=== PATIENT | female | born 1995 | race Hispanic/Latino ===

== ENCOUNTER 2018-01-20 23:37 | Emergency (ER) | payer OTHER ==
[2018-01-21 00:22] LABS: APPEARANCE,URINE Cloudy (CLEAR); BILIRUBIN,URINE Negative (NEGATIVE); COLOR,URINE Yellow (YELLOW); GLUCOSE, URINE (UA) Negative (NEGATIVE); KETONES,URINE Trace mg/dL (NEGATIVE); LEUKOCYTE ESTERASE ,URINE Moderate (NEGATIVE); NITRATE,URINE Negative (NEGATIVE); OCCULT BLOOD,URINE Negative (NEGATIVE); PH,URINE 5.5 (5.0-8.0); PROTEIN,URINE Negative (NEGATIVE)
[2018-01-21 00:27] LABS: HCG,QUAL RESULT NEGATIVE (NEGATIVE)
[2018-01-21 00:45] LABS: BACTERIA,URINE Few /HPF (None Seen); MUCUS,URINE Many LPF (None Seen); RBC,URINE None Seen /HPF (0-1); SQUAMOUS EPITHELIAL CELL,UR Moderate /HPF (0-2)
== END 2018-01-21 00:55 | disposition home or self-care (01) ==
LOC: EDH 23:37
DX: N39.0 Urinary tract infection, site not specified (principal); R05 Cough
CPT/HCPCS: 81001; 81025; 87088

== ENCOUNTER 2018-03-14 17:45 | Emergency (ER) | payer OTHER ==
[2018-03-14] MEDS ORDERED: ACETAMINOPHEN 325 MG TAB ONE (19:23)
[2018-03-14] MEDS ORDERED: ONDANSETRON ODT 4 MG TAB ONE (19:23)
[2018-03-14 19:39] LABS: BASOPHILS % (AUTO) 0.5 % (0.0-5.0); EOSINOPHILS % (AUTO) 1.1 % (0.0-8.0); HEMATOCRIT 40.2 % (36-48); MEAN CORPUSCULAR HEMOGLOBIN 28.3 pg (27.0-33.0); MEAN CORPUSCULAR HGB CONC 33.6 g/dL (32.0-36.0); MEAN CORPUSCULAR VOLUME 84.1 fL (79-99); MONOCYTES % (AUTO) 6.5 % (3.0-13.0); NEUTROPHILS % (AUTO) 70.9 % (40.0-77.0); NUCLEATED RED BLOOD CELLS 0.1 % (0.0-0.19); PLATELET COUNT (AUTO) 342 K/uL (130-400); RED BLOOD CELL COUNT(AUTO) 4.78 MIL/uL (4.00-5.50); RED CELL DISTRIBUTION WIDTH 13.1 % (11.0-15.5); WHITE BLOOD COUNT (AUTO) 13.6 K/uL (4.8-10.8)
[2018-03-14 19:40] LABS: APPEARANCE,URINE Clear (CLEAR); BILIRUBIN,URINE Negative (NEGATIVE); COLOR,URINE Yellow (YELLOW); GLUCOSE, URINE (UA) Negative (NEGATIVE); KETONES,URINE 40 mg/dL (NEGATIVE); LEUKOCYTE ESTERASE ,URINE Moderate (NEGATIVE); NITRATE,URINE Negative (NEGATIVE); OCCULT BLOOD,URINE Small (NEGATIVE); PH,URINE 6.5 (5.0-8.0); PROTEIN,URINE Negative (NEGATIVE)
[2018-03-14 19:47] LABS: HCG,QUAL RESULT POSITIVE (NEGATIVE)
[2018-03-14 19:58] LABS: BACTERIA,URINE Few /HPF (None Seen); MUCUS,URINE Few LPF (None Seen); SQUAMOUS EPITHELIAL CELL,UR Few /HPF (0-2)
[2018-03-14 20:10] LABS: CREATININE 0.7 mg/dL (0.5-1.5); POTASSIUM 3.9 mmol/L (3.5-5.1)
[2018-03-14 20:15] LABS: ALBUMIN 3.9 g/dL (3.5-5.0); BILIRUBIN,TOTAL 0.5 mg/dL (0.2-1.0)
== END 2018-03-14 22:33 | disposition home or self-care (01) ==
LOC: EDH 17:45
DX: O20.0 Threatened abortion (principal); O23.41 Unspecified infection of urinary tract in pregnancy, first trimester; Z3A.01 Less than 8 weeks gestation of pregnancy
CPT/HCPCS: 36415; 76817; 80053; 81001; 81025; 83690; 84702; 85025

== ENCOUNTER 2018-04-09 19:05 | Emergency (ER) | payer MEDICAID, OTHER ==
[2018-04-09] MEDS ORDERED: ACETAMINOPHEN 325 MG TAB ONE (19:49)
[2018-04-09 21:01] LABS: APPEARANCE,URINE Cloudy (CLEAR); BILIRUBIN,URINE Negative (NEGATIVE); COLOR,URINE Yellow (YELLOW); GLUCOSE, URINE (UA) TRACE mg/dL (NEGATIVE); KETONES,URINE Negative (NEGATIVE); LEUKOCYTE ESTERASE ,URINE Large (NEGATIVE); NITRATE,URINE Negative (NEGATIVE); OCCULT BLOOD,URINE Negative (NEGATIVE); PROTEIN,URINE Negative (NEGATIVE); UROBILINOGEN,URINE 0.2 mg/dL (0.2-1.0)
[2018-04-09] MEDS ORDERED: LIDOCAINE HCL-MPF 1% 2ML VIAL ONE (21:12)
[2018-04-09 21:13] LABS: RBC,URINE 0-1 /HPF (0-1); SQUAMOUS EPITHELIAL CELL,UR Few /HPF (0-2)
[2018-04-09] MEDS ORDERED: CEFTRIAXONE SODIUM 1 GM ONE (21:13)
[2018-04-09] MEDS ORDERED: ACETAMINOPHEN EXTRA STRENGTH 500 MG TABLET ONE (21:13)
[2018-04-09 21:14] LABS: MUCUS,URINE Few LPF (None Seen)
[2018-04-09 21:15] LABS: BACTERIA,URINE Moderate /HPF (None Seen)
== END 2018-04-09 22:04 | disposition home or self-care (01) ==
LOC: EDH 19:05
DX: O23.41 Unspecified infection of urinary tract in pregnancy, first trimester (principal); Z3A.10 10 weeks gestation of pregnancy; Z90.89 Acquired absence of other organs
CPT/HCPCS: 81001; 96372; 99283; J0696; J3490

== ENCOUNTER 2018-05-12 19:22 | Emergency (ER) | payer MEDICAID ==
[2018-05-12 20:45] LABS: BASOPHILS % (AUTO) 1.2 % (0.0-5.0); EOSINOPHILS % (AUTO) 1.8 % (0.0-8.0); HEMATOCRIT 38.7 % (36-48); MEAN CORPUSCULAR HEMOGLOBIN 28.5 pg (27.0-33.0); MEAN CORPUSCULAR HGB CONC 33.7 g/dL (32.0-36.0); MEAN CORPUSCULAR VOLUME 84.7 fL (79-99); MONOCYTES % (AUTO) 6.7 % (3.0-13.0); NEUTROPHILS % (AUTO) 65.3 % (40.0-77.0); PLATELET COUNT (AUTO) 301 K/uL (130-400); RED BLOOD CELL COUNT(AUTO) 4.56 MIL/uL (4.00-5.50); RED CELL DISTRIBUTION WIDTH 13.4 % (11.0-15.5); WHITE BLOOD COUNT (AUTO) 11.7 K/uL (4.8-10.8)
[2018-05-12 20:56] LABS: CREATININE 0.7 mg/dL (0.5-1.5); POTASSIUM 3.9 mmol/L (3.5-5.1)
[2018-05-12 21:14] LABS: BILIRUBIN,URINE Negative (NEGATIVE); COLOR,URINE Yellow (YELLOW); GLUCOSE, URINE (UA) Negative (NEGATIVE); KETONES,URINE Trace mg/dL (NEGATIVE); LEUKOCYTE ESTERASE ,URINE Moderate (NEGATIVE); NITRATE,URINE Negative (NEGATIVE); OCCULT BLOOD,URINE Negative (NEGATIVE); PH,URINE 6.5 (5.0-8.0); PROTEIN,URINE Negative (NEGATIVE)
[2018-05-12 21:16] LABS: APPEARANCE,URINE SLIGHTLY CLOUDY (CLEAR)
[2018-05-12 21:29] LABS: RBC,URINE 0-1 /HPF (0-1)
[2018-05-12 21:30] LABS: BACTERIA,URINE Few /HPF (None Seen); SQUAMOUS EPITHELIAL CELL,UR Moderate /HPF (0-2)
== END 2018-05-12 22:01 | disposition home or self-care (01) ==
LOC: EDH 19:22
DX: O20.0 Threatened abortion (principal); O23.42 Unspecified infection of urinary tract in pregnancy, second trimester; Z3A.15 15 weeks gestation of pregnancy; Z90.89 Acquired absence of other organs
CPT/HCPCS: 36415; 80048; 81001; 84702; 85025; 86900; 86901

== ENCOUNTER 2018-07-18 14:26 | Observation (INO) | payer MEDICAID ==
[~2018-07-18] VITALS: Ht 157.5 cm; Wt 76.7 kg
[2018-07-18 15:11] LABS: APPEARANCE,URINE Clear (CLEAR); BILIRUBIN,URINE Negative (NEGATIVE); COLOR,URINE Yellow (YELLOW); GLUCOSE, URINE (UA) Negative (NEGATIVE); KETONES,URINE Negative (NEGATIVE); LEUKOCYTE ESTERASE ,URINE Moderate (NEGATIVE); NITRATE,URINE Negative (NEGATIVE); OCCULT BLOOD,URINE Negative (NEGATIVE); PROTEIN,URINE Negative (NEGATIVE)
[2018-07-18 15:30] LABS: BACTERIA,URINE Moderate /HPF (None Seen); RBC,URINE 0-1 /HPF (0-1); SQUAMOUS EPITHELIAL CELL,UR Moderate /HPF (0-2)
[2018-07-18 15:31] LABS: MUCUS,URINE Rare LPF (None Seen)
[2018-07-18] MEDS ORDERED: CEFTRIAXONE SODIUM 1 GM ONE (16:19)
== END 2018-07-18 17:30 | disposition home or self-care (01) ==
LOC: EDH 14:26 → LDH 14:27
PROVIDERS: ADMIT Specialist; ATTEND Specialist
DX: O26.892 Other specified pregnancy related conditions, second trimester (principal); R10.30 Lower abdominal pain, unspecified; Z3A.24 24 weeks gestation of pregnancy
CPT/HCPCS: 81001; 99284; G0378 ×3; J0696; 96360

== ENCOUNTER 2018-08-21 10:55 | Observation (INO) | payer MEDICAID | END 2018-08-21 12:05 | disposition home or self-care (01) | LOC: EDH 10:55 → LDH 10:56 | PROVIDERS: ADMIT Obstetrics & Gynecology; ATTEND Obstetrics & Gynecology | DX: O46.93 Antepartum hemorrhage, unspecified, third trimester (principal); Z3A.29 29 weeks gestation of pregnancy | CPT/HCPCS: 99284; G0378 ==

== ENCOUNTER 2018-10-07 10:59 | Inpatient (IN) | payer MEDICAID | END 2018-10-09 16:35 | disposition home or self-care (01) | LOC: EDH 10:59 → LDH 11:00 → WSH 21:35 | PROC: 0UQG7ZZ Repair Vagina, Via Natural or Artificial Opening (ICD-10-PCS; principal; ~2018-10-07) | PROC: 10E0XZZ Delivery of Products of Conception, External Approach (ICD-10-PCS; ~2018-10-07) | DX: O60.14X0 Preterm labor third trimester with preterm delivery third trimester, not applicable or unspecified (principal); Z37.0 Single live birth; Z3A.49 Greater than 42 weeks gestation of pregnancy ==

== ENCOUNTER 2018-11-29 00:47 | Emergency (ER) | payer MEDICAID ==
[~2018-11-29 00:47] MED LIST: PREN-154 PO
== END 2018-11-29 02:16 | disposition home or self-care (01) ==
LOC: EDH 00:47
DX: J06.9 Acute upper respiratory infection, unspecified (principal); Z90.89 Acquired absence of other organs

== ENCOUNTER 2019-01-16 17:35 | Emergency (ER) | payer MEDICAID, OTHER ==
[2019-01-16 19:00] LABS: APPEARANCE,URINE Clear (CLEAR); BILIRUBIN,URINE Negative (NEGATIVE); COLOR,URINE Yellow (YELLOW); GLUCOSE, URINE (UA) Negative (NEGATIVE); KETONES,URINE Negative (NEGATIVE); LEUKOCYTE ESTERASE ,URINE Negative (NEGATIVE); NITRATE,URINE Negative (NEGATIVE); OCCULT BLOOD,URINE Negative (NEGATIVE); PH,URINE 6.5 (5.0-8.0); PROTEIN,URINE Negative (NEGATIVE)
[2019-01-16 19:03] LABS: HCG,QUAL RESULT POSITIVE (NEGATIVE)
== END 2019-01-16 20:20 | disposition home or self-care (01) ==
LOC: EDH 17:35
DX: O20.0 Threatened abortion (principal); Z3A.01 Less than 8 weeks gestation of pregnancy; Z98.890 Other specified postprocedural states
CPT/HCPCS: 36415; 81003; 81025; 84702

== ENCOUNTER 2019-03-26 10:42 | Emergency (ER) | payer MEDICAID | END 2019-03-26 12:53 | disposition home or self-care (01) | LOC: EDH 10:42 | DX: O26.891 Other specified pregnancy related conditions, first trimester (principal); Z3A.12 12 weeks gestation of pregnancy; J20.9 Acute bronchitis, unspecified; J10.1 Influenza due to other identified influenza virus with other respiratory manifestations | CPT/HCPCS: 87804 ==

== ENCOUNTER 2019-04-23 19:44 | Emergency (ER) | payer MEDICAID ==
[2019-04-23] MEDS ORDERED: ACETAMINOPHEN 325 MG TAB ONE (20:18)
[2019-04-23 20:22] LABS: APPEARANCE,URINE Clear (CLEAR); BILIRUBIN,URINE Negative (NEGATIVE); COLOR,URINE Yellow (YELLOW); GLUCOSE, URINE (UA) Negative (NEGATIVE); KETONES,URINE Negative (NEGATIVE); LEUKOCYTE ESTERASE ,URINE Moderate (NEGATIVE); NITRATE,URINE Negative (NEGATIVE); OCCULT BLOOD,URINE Negative (NEGATIVE); PH,URINE 6.5 (5.0-8.0); PROTEIN,URINE Negative (NEGATIVE)
[2019-04-23 21:42] LABS: BACTERIA,URINE Few /HPF (None Seen); RBC,URINE 0-1 /HPF (0-1)
[2019-04-23 21:43] LABS: SQUAMOUS EPITHELIAL CELL,UR Few /HPF (0-2)
== END 2019-04-23 21:29 | disposition home or self-care (01) ==
LOC: EDH 19:44
DX: O23.42 Unspecified infection of urinary tract in pregnancy, second trimester (principal); Z3A.18 18 weeks gestation of pregnancy; Z90.49 Acquired absence of other specified parts of digestive tract
CPT/HCPCS: 81001

== ENCOUNTER 2019-08-27 01:52 | Observation (INO) | payer MEDICAID ==
[~2019-08-27] VITALS: Ht 157.5 cm; Wt 80.7 kg
[2019-08-27 02:49] VITALS: BP 116/69
[2019-08-27] MEDS ORDERED: LACTATED RINGERS 1000ML 1,000 ML IV PRN (03:16)
[2019-08-27] MEDS ORDERED: AMPICILLIN 2GM+NS 100ML 100 ML IV ONE (03:22)
[2019-08-27] MEDS ORDERED: LACTATED RINGERS 1000ML 1,000 ML IV ONE (03:24)
[2019-08-27] MEDS ORDERED: AMPICILLIN 2GM+NS 100ML 100 ML IV SCH (03:30)
[2019-08-27] MEDS ORDERED: MEPERIDINE-PF 50 MG/ML SYG IVP PRN (03:30)
[2019-08-27] MEDS ORDERED: PROMETHAZINE HCL 25 MG/ML 1ML AMPULE IM PRN (03:30)
[2019-08-27] MEDS ORDERED: AMPICILLIN 1GM+NS 50ML 50 ML IV SCH (07:30)
== END 2019-08-27 08:33 | disposition home or self-care (01) ==
LOC: EDH 01:52 → INTOOBSV 01:53 → OBSVTOIN 01:53 → LDH 01:53
DX: O62.9 Abnormality of forces of labor, unspecified (principal); Z3A.36 36 weeks gestation of pregnancy
CPT/HCPCS: 36415; 80305; 81001; 85027; 86592; 86701; 86850; 86900; 86901; 87088; 87340; 87390; 96365; 99284; G0378 ×6; J0290 ×2; J7120

== ENCOUNTER 2020-04-06 13:18 | Emergency (ER) | payer MEDICAID ==
[~2020-04-06 13:18] MED LIST changes: +FERR-82 PO
[2020-04-06] MEDS ORDERED: ACETAMINOPHEN WITH CODEINE 1 TAB TAB ONE (13:46)
== END 2020-04-06 15:29 | disposition left against medical advice (07) ==
LOC: EDH 13:18
DX: O9A.212 Injury, poisoning and certain other consequences of external causes complicating pregnancy, second trimester (principal); S09.93XA Unspecified injury of face, initial encounter; Z90.49 Acquired absence of other specified parts of digestive tract; Z3A.27 27 weeks gestation of pregnancy; Y08.89XA Assault by other specified means, initial encounter; Y93.89 Activity, other specified; Y92.89 Other specified places as the place of occurrence of the external cause; Y99.8 Other external cause status
CPT/HCPCS: 76805

== ENCOUNTER 2020-06-14 16:40 | Inpatient (IN) | payer MEDICAID ==
[~2020-06-14] VITALS: Ht 157.5 cm; Wt 80.7 kg
[2020-06-14 17:21] LABS: APPEARANCE,URINE Clear (CLEAR); BILIRUBIN,URINE Negative (NEGATIVE); COLOR,URINE Yellow (YELLOW); GLUCOSE, URINE (UA) Negative (NEGATIVE); KETONES,URINE >=80 mg/dL (NEGATIVE); LEUKOCYTE ESTERASE ,URINE Trace (NEGATIVE); NITRATE,URINE Negative (NEGATIVE); OCCULT BLOOD,URINE Negative (NEGATIVE); PH,URINE 7.5 (5.0-8.0); PROTEIN,URINE Negative (NEGATIVE)
[2020-06-14 17:28] LABS: AMPHET/METH SCREEN,URINE NEGATIVE (NEGATIVE); BARBITURATE SCREEN, URINE NEGATIVE (NEGATIVE); BENZODIAZEPINES SCREEN,URINE NEGATIVE (NEGATIVE); CANNABINOID SCREEN,URINE NEGATIVE (NEGATIVE); COCAINE SCREEN,URINE NEGATIVE (NEGATIVE); OPIATE SCREEN,URINE NEGATIVE (NEGATIVE); PHENCYCLIDINE SCREEN,URINE NEGATIVE (NEGATIVE)
[2020-06-14 17:29] LABS: BACTERIA,URINE Few /HPF (None Seen); MUCUS,URINE Few LPF (None Seen); RBC,URINE 0-1 /HPF (0-1); SQUAMOUS EPITHELIAL CELL,UR Few /HPF (0-2)
[2020-06-14] MEDS ORDERED: LACTATED RINGERS 1000ML 1,000 ML IV PRN (17:45)
[2020-06-14] MEDS ORDERED: LACTATED RINGERS 500 ML 500 ML IV PRN (17:45)
[2020-06-14] MEDS ORDERED: EPHEDRINE SULFATE 50 MG/ML AMPULE IVP PRN (17:45)
[2020-06-14] MEDS ORDERED: ROPIVACAINE 0.2% 100ML VIAL 100 ML EP PRN (17:45)
[2020-06-14] MEDS ORDERED: NALOXONE HCL 0.4 MG/1 ML ML IV PRN (17:45)
[2020-06-14 17:51] LABS: BASOPHILS % (AUTO) 0.2 % (0.0-5.0); EOSINOPHILS % (AUTO) 0.4 % (0.0-8.0); HEMATOCRIT 28.6 % (36-48); MEAN CORPUSCULAR HEMOGLOBIN 20.3 pg (27.0-33.0); MEAN CORPUSCULAR HGB CONC 30.4 g/dL (32.0-36.0); MEAN CORPUSCULAR VOLUME 66.7 fL (79-99); MONOCYTES % (AUTO) 5.6 % (3.0-13.0); NEUTROPHILS % (AUTO) 77.4 % (40.0-77.0); PLATELET COUNT (AUTO) 336 K/uL (130-400); RED BLOOD CELL COUNT(AUTO) 4.29 MIL/uL (4.00-5.50); WHITE BLOOD COUNT (AUTO) 13.3 K/uL (4.8-10.8)
[2020-06-14] MEDS ORDERED: AMPICILLIN 2GM+NS 100ML 100 ML IV SCH (18:00)
[2020-06-14] MEDS ORDERED: FENTANYL CITRATE PF 50 MCG/1 ML 2ML VIAL ONE (18:29)
[2020-06-14 19:52] VITALS: BP 101/74
[2020-06-14] MEDS ORDERED: OXYTOCIN-LR 20 UNITS/1000 ML 1,000 ML IV SCH ×2 (20:00→20:30)
[2020-06-14] MEDS: AMPICILLIN 1GM+NS 50ML 50 ML IV SCH (21:56)
[2020-06-14] MEDS ORDERED: LIDOCAINE HCL 1% 20 ML VIAL ONE (22:32)
[2020-06-15] VITALS (7 sets, daily range): BP systolic 105–134; BP diastolic 65–87
[2020-06-15] MEDS ORDERED: WITCH HAZEL 1 PAD TP PRN
[2020-06-15] MEDS ORDERED: DIPH,PERTUSS(ACELL),TET VAC/PF 0.5 ML VIAL IM PRN
[2020-06-15] MEDS ORDERED: ACETAMINOPHEN WITH CODEINE 1 TAB TAB PO PRN
[2020-06-15] MEDS ORDERED: ACETAMINOPHEN 325 MG TAB PO PRN
[2020-06-15] MEDS ORDERED: BENZOCAINE/LANOLIN/ALOE VERA 60 ML AEROSOL TP PRN
[2020-06-15] MEDS ORDERED: MEASLES/MUMPS/RUBELLA VACCINE, LIVE 0.5 ML/VIAL SQ PRN
[2020-06-15] MEDS ORDERED: LANOLIN 30GM OINTMENT TP PRN
[2020-06-15] MEDS: IBUPROFEN 600 MG TABLET PO PRN ×3 (00:21→17:03)
[2020-06-15] MEDS: AMPICILLIN 1GM+NS 50ML 50 ML IV SCH (02:00)
[2020-06-15] MEDS ORDERED: FLU VACC QS2020-21(6MOS UP)/PF 60 MCG/0.5 ML ML IM ONE (07:00)
[2020-06-15 07:47] LABS: RAPID PLASMA REAGIN NONREACTIVE (NONREACTIVE)
[2020-06-15] MEDS: DOCUSATE SODIUM 100 MG CAP PO SCH ×2 (09:57→21:03)
[2020-06-16 03:55] VITALS: BP 125/74
[2020-06-16] MEDS: IBUPROFEN 600 MG TABLET PO PRN (04:05)
[2020-06-16 07:15] LABS: HEPATITIS Bs ANTIGEN SCREEN P Negative (Negative)
[2020-06-16] MEDS: DOCUSATE SODIUM 100 MG CAP PO SCH (09:02)
[2020-06-16 09:16] VITALS: BP 131/72
== END 2020-06-16 11:35 | disposition home or self-care (01) | DRG 560 ==
LOC: EDH 16:40 → LDH 16:41 → OBSVTOIN 16:41 → WSH 06-15 01:50
PROVIDERS: ADMIT Specialist; ATTEND Specialist
PROC: 10E0XZZ Delivery of Products of Conception, External Approach (ICD-10-PCS; principal; 2020-06-14)
PROC: 0UQMXZZ Repair Vulva, External Approach (ICD-10-PCS; 2020-06-14)
PROC: 10907ZC Drainage of Amniotic Fluid, Therapeutic from Products of Conception, Via Natural or Artificial Opening (ICD-10-PCS; 2020-06-14)
PROC: 00HU33Z Insertion of Infusion Device into Spinal Canal, Percutaneous Approach (ICD-10-PCS; 2020-06-14)
PROC: 3E0R3BZ Introduction of Anesthetic Agent into Spinal Canal, Percutaneous Approach (ICD-10-PCS; 2020-06-14)
PROC: 3E02340 Introduction of Influenza Vaccine into Muscle, Percutaneous Approach (ICD-10-PCS; 2020-06-15)
PROC: 3E0234Z Introduction of Serum, Toxoid and Vaccine into Muscle, Percutaneous Approach (ICD-10-PCS; 2020-06-15)
PROC: 3E0134Z Introduction of Serum, Toxoid and Vaccine into Subcutaneous Tissue, Percutaneous Approach (ICD-10-PCS; 2020-06-15)
DX: O60.14X0 Preterm labor third trimester with preterm delivery third trimester, not applicable or unspecified (principal); O99.62 Diseases of the digestive system complicating childbirth; K21.9 Gastro-esophageal reflux disease without esophagitis; O71.7 Obstetric hematoma of pelvis; Z3A.36 36 weeks gestation of pregnancy; Z37.0 Single live birth; Z23 Encounter for immunization
CPT/HCPCS: 36415; 80305; 81001; 85025; 86592; 86701; 86850; 86900; 86901; 87340; 87390; 90715; A4314; G0378; J0290; J2590; J2795; J3010; J7120; Q2035